=== PATIENT | female | born 1995 | race African-American/Black ===

== ENCOUNTER 2018-11-06 17:42 | Emergency (ER) | payer BC, OTHER ==
[2018-11-06] MEDS ORDERED: Ondansetron ODT 4 MG TAB ONE (18:11)
[2018-11-06] MEDS ORDERED: Mag-Al Plus 1200 MG/1200 MG/120 MG/30 ML UDCUP ONE (18:25)
[2018-11-06] MEDS ORDERED: Lidocaine Viscous Sol 2% 15 ml UD Cup ONE (18:25)
== END 2018-11-06 18:53 | disposition home or self-care (01) ==
LOC: SCSER 17:42
DX: K21.9 Gastro-esophageal reflux disease without esophagitis (principal)
CPT/HCPCS: 99283; Q0162